=== PATIENT | male | born 1955 | race African-American/Black ===

== ENCOUNTER 2024-04-30 15:10 | Emergency (ER) | payer MEDICAID ==
[~2024-04-30] VITALS: Ht 175.3 cm; Wt 100.0 kg
[2024-04-30 15:28] VITALS: O2SAT 96
[2024-04-30 16:38] LABS: BASOPHILS % 0.7 % (0.0-2.0); EOSINOPHILS % 1.1 % (0.0-5.0); HEMATOCRIT. 41.6 % (42.0-52.0); HEMOGLOBIN. 13.3 g/dL (14.0-18.0); LYMPHOCYTES % 33.3 % (20.0-50.0); MEAN CORPUSCULAR HEMOGLOBIN 26.7 pg (28.0-32.0); MEAN CORPUSCULAR VOLUME 83.3 fL (80.0-94.0); MEAN PLATELET VOLUME 8.8 fl (7.4-10.4); MONOCYTES % 10.9 % (2.0-8.0); PLATELET 304 x1000/uL (130-400); RED BLOOD CELL COUNT 4.99 mill/uL (4.7-6.1); WHITE BLOOD COUNT 6.5 x1000/uL (4.5-11.0)
[2024-04-30 16:42] LABS: POTASSIUM 4.7 mEq/L (3.5-5.1)
[2024-04-30 16:43] LABS: CALCIUM 9.2 mg/dL (8.7-10.4)
[2024-04-30 16:48] LABS: CREATININE 1.7 mg/dL (0.6-1.3)
[2024-04-30] MEDS: INSULIN REGULAR (HUMULIN R) 1000UNITS/10ML VIAL IV STA (19:35)
[2024-04-30 20:10] VITALS: BP 150/89; PULSE 68; RESP 18; TEMP 36.9; O2SAT 99
== END 2024-04-30 20:40 | disposition home or self-care (01) ==
LOC: ER 15:10
DX: E11.65 Type 2 diabetes mellitus with hyperglycemia (principal); I10 Essential (primary) hypertension; Z98.890 Other specified postprocedural states
CPT/HCPCS: 99283; 96374; 80048; 82962; 85025; 36415; J1815